=== PATIENT | female | born 1995 | race African-American/Black ===

== ENCOUNTER 2016-11-12 03:53 | Observation (INO) | payer OTHER ==
[~2016-11-12] VITALS: Ht 165.1 cm; Wt 92.1 kg
[~2016-11-12 03:53] MED LIST: FS300 PO
[2016-11-12] MEDS ORDERED: PREN-88 PO (04:44)
== END 2016-11-12 06:00 | disposition home or self-care (01) ==
LOC: L&D 03:53
PROVIDERS: ADMIT Specialist; ATTEND Specialist
DX: O62.9 Abnormality of forces of labor, unspecified (principal); O26.893 Other specified pregnancy related conditions, third trimester; R10.9 Unspecified abdominal pain; Z3A.36 36 weeks gestation of pregnancy
CPT/HCPCS: 99281; G0378

== ENCOUNTER 2016-11-12 23:19 | Observation (INO) | payer OTHER ==
[~2016-11-12] VITALS: Ht 165.1 cm; Wt 94.3 kg
[~2016-11-12 23:19] MED LIST changes: +PREN-88 PO
[2016-11-13] MEDS ORDERED: ACETAMINOPHEN 500MG TABLET PO ONE
== END 2016-11-13 01:00 | disposition home or self-care (01) ==
LOC: L&D 23:19
PROVIDERS: ADMIT Specialist; ATTEND Specialist
DX: O62.9 Abnormality of forces of labor, unspecified (principal); O26.893 Other specified pregnancy related conditions, third trimester; R51 Headache; Z3A.36 36 weeks gestation of pregnancy
CPT/HCPCS: 99281; G0378

== ENCOUNTER 2016-11-13 21:51 | Observation (INO) | payer OTHER ==
[~2016-11-13] VITALS: Ht 165.1 cm; Wt 94.3 kg
== END 2016-11-13 23:50 | disposition home or self-care (01) ==
LOC: L&D 21:51
PROVIDERS: ADMIT Specialist; ATTEND Specialist
DX: O26.893 Other specified pregnancy related conditions, third trimester (principal); R10.9 Unspecified abdominal pain; Z3A.37 37 weeks gestation of pregnancy
CPT/HCPCS: G0378 ×2

== ENCOUNTER 2016-11-14 13:35 | Observation (INO) | payer OTHER | END 2016-11-14 15:45 | disposition home or self-care (01) | LOC: L&D 13:35 | PROVIDERS: ADMIT Specialist; ATTEND Specialist | DX: O26.893 Other specified pregnancy related conditions, third trimester (principal); R10.9 Unspecified abdominal pain; Z3A.37 37 weeks gestation of pregnancy | CPT/HCPCS: G0378 ×2 ==

== ENCOUNTER 2016-11-14 20:36 | Observation (INO) | payer OTHER | END 2016-11-14 21:35 | disposition home or self-care (01) | LOC: L&D 20:36 | PROVIDERS: ADMIT Specialist; ATTEND Specialist | DX: O26.893 Other specified pregnancy related conditions, third trimester (principal); R10.9 Unspecified abdominal pain; Z3A.37 37 weeks gestation of pregnancy | CPT/HCPCS: G0378 ==

== ENCOUNTER 2016-11-22 07:22 | Inpatient (IN) | payer OTHER ==
[~2016-11-22] VITALS: Ht 167.6 cm; Wt 95.3 kg
[~2016-11-22 07:22] MED LIST changes: +FERR325T23 PO; -FS300 PO
[2016-11-22] MEDS ORDERED: LACTATED RINGERS 1,000 ML IV SCH ×2 (08:08→08:30)
[2016-11-22] MEDS ORDERED: MISOPROSTOL 100MCG TABLET VG SCH (08:15)
[2016-11-22] MEDS ORDERED: BUTORPHANOL TARTRATE 2 MG/ML VIAL IV PRN (08:15)
[2016-11-22] MEDS ORDERED: LIDOCAINE HCL 1% 20ML VIAL (Pyxis) INJ INFIL SCH (08:15)
[2016-11-22] MEDS ORDERED: NALOXONE HCL 0.4 MG/ML 1ML VIAL IM PRN (08:15)
[2016-11-22 08:54] LABS: BASOPHILS % 0.3 % (0.0-2.0); EOSINOPHILS % 0.9 % (0.0-5.0); HEMATOCRIT. 29.6 % (36.0-48.0); HEMOGLOBIN. 9.7 g/dL (12.0-16.0); LYMPHOCYTES % 20.9 % (20.0-50.0); MEAN CORPUSCULAR HEMOGLOBIN 26.7 pg (28.0-32.0); MEAN CORPUSCULAR VOLUME 81.5 fL (81.0-99.0); MEAN PLATELET VOLUME 9.1 fl (7.4-10.4); MONOCYTES % 9.7 % (2.0-8.0); NEUTROPHILS % 68.2 % (40.0-76.0); PLATELET 163 x1000/uL (130-400); RED BLOOD CELL COUNT 3.64 mill/uL (4.2-5.4)
[2016-11-22] MEDS ORDERED: PENICILLIN G POTASSIUM 5 MMU in DEXT 5% WATER 100 ML IV SCH (09:00)
[2016-11-22 09:13] LABS: CLARITY URINE CLOUDY (CLEAR); COLOR URINE YELLOW (YELLOW); KETONES URINE NEGATIVE (NEGATIVE); LEUKOCYTE ESTERASE URINE 3+ (NEGATIVE); NITRITE URINE NEGATIVE (NEGATIVE); OCCULT BLOOD URINE 2+ (NEGATIVE); PROTEIN URINE NEGATIVE (NEGATIVE); SPECIFIC GRAVITY URINE 1.013 (1.005-1.030)
[2016-11-22 09:24] LABS: *AMPHETAMINES SCREEN URINE NEGATIVE (NEGATIVE); *BARBITURATES SCREEN URINE NEGATIVE (NEGATIVE); *BENZODIAZEPINES SCREEN URINE NEGATIVE (NEGATIVE); *COCAINE SCREEN URINE NEGATIVE (NEGATIVE); CANNABINOID URINE SCREEN NEGATIVE (NEGATIVE); METHADONE URINE SCREEN NEGATIVE (NEGATIVE); OPIATES URINE SCREEN NEGATIVE (NEGATIVE); PHENCYCLIDINE URINE SCREEN NEGATIVE (NEGATIVE)
[2016-11-22 09:59] LABS: HEPATITIS B SURFACE ANTIGEN NEGATIVE; RUBELLA IGG 133.9 IU/mL (4.99-10)
[2016-11-22] MEDS ORDERED: DEXT 5%/LR + PITOCIN 20UNITS/L 1,000 ML IV ONE (10:00)
[2016-11-22 10:07] LABS: PLATELET ESTIMATE NORMAL
[2016-11-22] MEDS ORDERED: PENICILLIN G POTASSIUM 2.5 MMU in DEXTROSE 5% WATER 50 ML IV SCH (13:00)
[2016-11-22] MEDS ORDERED: FENTANYL CITRATE/PF 50MCG/ML 2ML VIAL ONE (13:07)
[2016-11-22] MEDS ORDERED: BUPIVACAINE HCL/NS/PF EPIDURAL 100 ML EP ONE (13:09)
[2016-11-22] MEDS ORDERED: BUPIVACAINE HCL/PF 0.25% (2.5MG/ML) 10ML ONE (13:09)
[2016-11-22] MEDS ORDERED: BUPIVACAINE HCL/NS/PF EPIDURAL 100 ML EP SCH (14:00)
[2016-11-22] MEDS ORDERED: DIPHENHYDRAMINE 50MG/ML VIAL IV PRN (14:00)
[2016-11-22] MEDS ORDERED: ONDANSETRON HCL 4MG/2ML VIAL IV PRN (14:00)
[2016-11-22] MEDS ORDERED: DEXT 5%/LR + PITOCIN 20UNITS/L 1,000 ML IV SCH (15:21)
[2016-11-22] MEDS ORDERED: BENZOCAINE/LANOLIN/ALOE VERA SPRAY TOP PRN (15:30)
[2016-11-22] MEDS ORDERED: DIPHENHYDRAMINE 25MG CAPSULE PO PRN (15:30)
[2016-11-22] MEDS ORDERED: ACETAMINOPHEN WITH CODEINE 300/30MG TABLET PO PRN ×2 (15:30)
[2016-11-22] MEDS ORDERED: BISACODYL 10MG SUPP PR PRN (15:30)
[2016-11-22] MEDS ORDERED: HEMORRHOIDAL SUPP PR PRN (16:00)
[2016-11-22] MEDS ORDERED: GLYCERIN/WITCH HAZEL LEAF MEDICATED PAD TOP PRN (16:00)
[2016-11-22] MEDS ORDERED: LANOLIN OINT 0.25 GM TUBE TOP PRN (16:00)
[2016-11-22] MEDS: IBUPROFEN 400MG TABLET PO PRN (18:12)
[2016-11-22] MEDS ORDERED: TETANUS, DIPHTHERIA, PERTUSSIS VAC/PF 0.5ML (>7YR OLD) IM ONE (19:00)
[2016-11-22] MEDS: DOCUSATE SODIUM 100MG CAPSULE PO SCH (21:00)
[2016-11-22] MEDS: SIMETHICONE 80MG TABLET CHEW PO SCH (21:20)
[2016-11-23 07:06] LABS: BASOPHILS % 0.2 % (0.0-2.0); EOSINOPHILS % 0.7 % (0.0-5.0); HEMOGLOBIN. 9.7 g/dL (12.0-16.0); LYMPHOCYTES % 18.5 % (20.0-50.0); MEAN CORPUSCULAR HEMOGLOBIN 26.2 pg (28.0-32.0); MEAN CORPUSCULAR VOLUME 81.1 fL (81.0-99.0); MEAN PLATELET VOLUME 8.9 fl (7.4-10.4); MONOCYTES % 9.3 % (2.0-8.0); NEUTROPHILS % 71.3 % (40.0-76.0); PLATELET 167 x1000/uL (130-400); RED BLOOD CELL COUNT 3.69 mill/uL (4.2-5.4); RED CELL DISTRIBUTION WIDTH 15.3 % (11.6-14.6)
[2016-11-23] MEDS: SIMETHICONE 80MG TABLET CHEW PO SCH ×2 (08:38→21:18)
[2016-11-23] MEDS ORDERED: PRENATAL VIT/FE FUMARATE/FA TABLET PO SCH (09:00)
[2016-11-23] MEDS: FERROUS SULFATE 325MG TABLET PO SCH ×2 (12:35→17:55)
[2016-11-23] MEDS: IBUPROFEN 400MG TABLET PO PRN (12:35)
[2016-11-23] MEDS: DOCUSATE SODIUM 100MG CAPSULE PO SCH (21:17)
[2016-11-24 08:30] VITALS: BP 120/82
== END 2016-11-24 10:15 | disposition home or self-care (01) | DRG 560 ==
LOC: OBSVTOIN 07:22 → L&D 07:22 → 7EST PP/OB 16:45
PROVIDERS: ADMIT Specialist; ATTEND Specialist
PROC: 3E0S3CZ (ICD-10-PCS; 2016-11-22)
PROC: 00HU33Z Insertion of Infusion Device into Spinal Canal, Percutaneous Approach (ICD-10-PCS; 2016-11-22)
PROC: 0HQ9XZZ Repair Perineum Skin, External Approach (ICD-10-PCS; 2016-11-22)
PROC: 10E0XZZ Delivery of Products of Conception, External Approach (ICD-10-PCS; principal; 2016-11-22 14:57)
DX: O99.02 Anemia complicating childbirth (principal); D64.9 Anemia, unspecified; O70.0 First degree perineal laceration during delivery; Z37.0 Single live birth; Z3A.38 38 weeks gestation of pregnancy
CPT/HCPCS: 36415; 80305; 81001; 85025; 86592; 86703; 86762; 86850; 86900; 87340; 90715; 99281; G0378; J2540; J2590; J3010; J3490; J7060; J7120